=== PATIENT | female | born 1960 | race Caucasian/White ===

== ENCOUNTER 2021-07-11 14:57 | Emergency (ER) | payer MEDICARE, OTHER ==
[2021-07-11] MEDS ORDERED: TYLENOL W/CODEIN1 EA PO (19:35)
== END 2021-07-11 19:58 | disposition home or self-care (01) ==
LOC: ER1 14:57
DX: S42.302A Unspecified fracture of shaft of humerus, left arm, initial encounter for closed fracture (principal); I10 Essential (primary) hypertension; E78.5 Hyperlipidemia, unspecified; F17.210 Nicotine dependence, cigarettes, uncomplicated; Z88.5 Allergy status to narcotic agent; W19.XXXA Unspecified fall, initial encounter
CPT/HCPCS: 29105; 73080; 73200; 99284

== ENCOUNTER → 2021-08-08 | Outpatient (CLI) | payer MEDICARE, OTHER ==
[~2021-08-08] MED LIST: TYLENOL W/CODEIN1 EA PO
== END ==
LOC: KOH-I 16:00
DX: S52.122A Displaced fracture of head of left radius, initial encounter for closed fracture (principal); M25.422 Effusion, left elbow; M19.022 Primary osteoarthritis, left elbow
CPT/HCPCS: 73200